=== PATIENT | female | born 1980 | race African-American/Black ===

== ENCOUNTER 2017-05-28 15:17 | Emergency (ER) | payer SELFPAY ==
[~2017-05-28] VITALS: Ht 154.9 cm; Wt 100.0 kg
[~2017-05-28 15:17] MED LIST: ALBU0.086 INH; ALBU8I INH; LORTA5 PO; SYMB80AE INH
[2017-05-28 15:18] VITALS: BP 140/86; PULSE 86; RESP 20; TEMP 97.6; O2SAT 100
[2017-05-28] MEDS ORDERED: KETOROLAC TROMETHAMINE 60 MG/2 ML (IM) VIAL IM ONE (16:15)
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
[2017-05-28] MEDS ORDERED: BUTA1CAP PO (16:16)
== END 2017-05-28 17:03 | disposition home or self-care (01) ==
LOC: NEPD 15:17
DX: G44.209 Tension-type headache, unspecified, not intractable (principal)
CPT/HCPCS: 96372; 99284; J1885

== ENCOUNTER 2017-12-18 21:49 | Emergency (ER) | payer OTHER, BC ==
[~2017-12-18 21:49] MED LIST changes: +BUTA1CAP PO
[2017-12-18 22:27] VITALS: BP 128/61; PULSE 85; RESP 16; TEMP 98.4; O2SAT 100
[2017-12-18] MEDS ORDERED: CYCL10TA PO (22:59)
[2017-12-18] MEDS ORDERED: IBUP-232 PO (22:59)
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
[2017-12-18] MEDS ORDERED: CYCLOBENZAPRINE HCL 10 MG TAB PO ONE (23:00)
[2017-12-18] MEDS ORDERED: IBUPROFEN 600 MG TAB PO ONE (23:00)
== END 2017-12-18 23:07 | disposition home or self-care (01) ==
LOC: NEPD 21:49
DX: M54.5 Low back pain (principal); R51 Headache; V89.2XXA Person injured in unspecified motor-vehicle accident, traffic, initial encounter
CPT/HCPCS: 99283